=== PATIENT | female | born 1990 | race Caucasian/White ===

== ENCOUNTER 2018-06-09 11:18 | Emergency (ER) | payer BC ==
[2018-06-09 11:59] LABS: Absolute Lymphocytes (CBC) 2.4 K/uL (0.7-4.9); Absolute Monocytes 0.6 K/uL (0.1-1.3); Absolute Neutrophil 4.4 K/uL (1.8-8.0); Basophils % 0.5 % (0-1.3); Eosinophils % 3.4 % (0-4.4); Hematocrit 37.7 % (36.0-45.0); Lymphocytes % 30.8 % (15.3-44.8); MCH 30.3 pg (27.0-35.0); MCV 87.9 fL (80-100); MPV 9.9 fL (7.6-11.3); Monocytes % 7.8 % (3.3-12.3); RBC Red Blood Cell Count 4.29 M/uL (3.86-4.86)
[2018-06-09] MEDS ORDERED: NA CHLORIDE 0.9% 1,000 ML ONE (12:06)
[2018-06-09 12:13] LABS: BUN Blood Urea Nitrogen 5 mg/dL (7-18); Bicarbonate 26 mmol/L (21-32); Glucose Level 93 mg/dL (74-106); Potassium 3.8 mmol/L (3.5-5.1); Sodium Level 139 mmol/L (136-145)
[2018-06-09 13:52] LABS: Urine Blood NEGATIVE (NEG); Urine Glucose NEGATIVE (NEG); Urine Protein NEGATIVE (NEG); Urine Specific Gravity 1.015 (1.005-1.030)
--- NOTE | 2018-06-09 14:06 | RAD REPORT ---
EXAM DESCRIPTION: US - Transvaginal OB - 06/09/2018 1:09 pm CLINICAL HISTORY: with abdominal pain and vaginal bleeding COMPARISON: None. FINDINGS: The uterus is retroverted and measures 9 x 7 x 6 centimeters. A gestational sac is present within the endometrium. Within this is a yolk sac and pole with a crown-rump length 0.6 centimeters. Cardiac activity 131 beats per minute. A 3.5 centimeter heterogene ous fluid collection within the left aspect of the endometrium probably represents a hematoma. An IUD extends into the uterine fundus. It appears to abut or slightly enter the gestational sac. The ovaries are normal in size and echotexture. No significant free fluid is seen. IMPRESSION: Single live intrauterine with an estimated gestational age 6 weeks 3 days MARIANNE 01/30/2019 An IUD appears to either abut for slightly enter the gestational sac. This should be monitored on a s ubsequent examination 3.5 centimeter fluid collection probably representing a hematoma within the endometrium
--- NOTE | 2018-06-09 14:45 | EDPHYS ---
Physician Documentation [facility] Name: Brissa Barrett Age: 28 yrs Sex: Female : 1990 Arrival Date: 06/09/2018 Time: 11:21 Bed 8 Private MD: Casandra Munson ED Physician Maxim Gonzalez HPI: 06/09 11:58 This 28 yrs old Female presents to ER via Ambulatory with complaints of kb Vaginal Bleeding. 11:58 The patient presents with vaginal bleeding that is moderate, spotting, intermittent kb moderate flow, spotting in between. Onset: The symptoms/episode began/occurred 2 week(s) ago. Modifying factors: The symptoms are alleviated by nothing, the symptoms are aggravated by nothing. Associated signs and symptoms: Pertinent positives: cramping, vaginal bleeding, Pertinent negatives: constipation, diarrhea, dyspareunia, dysuria, fever, hematuria, nausea, urinary frequency, vaginal discharge, vomiting. Severity of symptoms: At their worst the symptoms were moderate, in the emergency department the symptoms are unchanged. The patient's method of control includes IUD. The patient has not experienced similar symptoms in the past. The patient has not recently seen a physician. Pt reports vaginal bleeding that started 2 weeks ago. States she has had lower abd/pelvic pain and low back pain as well. . 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 - Social history:: Smoking status: Patient/guardian denies using tobacco. - Ebola Screening: : No symptoms or risks identified at this time. ROS: 12:05 Constitutional: Negative for fever, chills, and weight loss, Cardiovascular: Negative kb for chest pain, palpitations, and edema, Respiratory: Negative for shortness of breath, cough, wheezing, and pleuritic chest pain, Back: Negative for injury and pain, MS/Extremity: Negative for injury and deformity, Skin: Negative for injury, rash, and discoloration, Neuro: Negative for headache, weakness, numbness, tingling, and seizure. 12:05 Abdomen/GI: Positive for abdominal pain, Negative for nausea, vomiting, and diarrhea. 12:05 : Positive for vaginal bleeding. Exam: 12:05 Constitutional: This is a well developed, well nourished patient who is awake, alert, kb and in no acute distress. Head/Face: Normocephalic, atraumatic. Chest/axilla: Normal chest wall appearance and motion. Nontender with no deformity. No lesions are appreciated. Cardiovascular: Regular rate and rhythm with a normal S1 and S2. No gallops, murmurs, or rubs. Normal PMI, no JVD. No pulse deficits. Respiratory: Lungs have equal breath sounds bilaterally, clear to auscultation and percussion. No rales, rhonchi or wheezes noted. No increased work of breathing, no retractions or nasal flaring. Back: No spinal tenderness. No costovertebral tenderness. Full range of motion. Skin: Warm, dry with normal turgor. Normal color with no rashes, no lesions, and no evidence of cellulitis. MS/ Extremity: Pulses equal, no cyanosis. Neurovascular intact. Full, normal range of motion. Neuro: Awake and alert, GCS 15, oriented to person, place, time, and situation. Cranial nerves II-XII grossly intact. Motor strength 5/5 in all extremities. Sensory grossly intact. Cerebellar exam normal. Normal gait. 12:05 Abdomen/GI: Inspection: abdomen appears normal, Bowel sounds: normal, in all quadrants, Palpation: soft, in all quadrants, moderate abdominal tenderness, in the right lower quadrant and left lower quadrant. Vital Signs: 11:30 BP 126 / 87; Pulse 112; Resp 16 S; Temp 99.0(TE); Pulse Ox 100% on R/A; Weight 74.84 kg aa5 (R); Height 6 ft. 0 in. (182.88 cm) (R); Pain 5/10; 12:30 BP 125 / 83; Pulse 98; Resp 16; Pulse Ox 100% on R/A; hb 13:59 BP 118 / 84; Pulse 84; Resp 17; Pulse Ox 100% on R/A; dh3 11:30 Body Mass Index 22.38 (74.84 kg, 182.88 cm) aa5 MDM: 11:31 Patient medically screened. kb 12:04 Data reviewed: vital signs, nurses notes. Data interpreted: Pulse oximetry: on room air kb is 100 %. Interpretation: normal. ED course: Pt educated on positive urine test and need for additional testing. Verbal understanding received. . 14:44 Counseling: I had a detailed discussion with the patient and/or guardian regarding: the kb historical points, exam findings, and any diagnostic results supporting the discharge/admit diagnosis, lab results, radiology results, the need for outpatient follow up, an OB/Gyne specialist, to return to the emergency department if symptoms worsen or persist or if there are any questions or concerns that arise at home. 14:44 Physician consultation: Roger Segura MD was contacted at 14:44, regarding consult, kb patient's condition, and will see patient in office, in 2-3 days. 06/09 11:42 Order name: Basic Metabolic Panel; Complete Time: 12:18 kb 06/09 11:42 Order name: CBC with Diff; Complete Time: 12:06 kb 06/09 11:47 Order name: Quantitative Hcg; Complete Time: 12:33 kb 06/09 11:47 Order name: Abo/rh Typing; Complete Time: 12:26 kb 06/09 11:50 Order name: Urine Dipstick--Ancillary (enter results); Complete Time: 14:00 bd 06/09 11:50 Order name: Urine --Ancillary (enter results); Complete Time: 14:00 bd 06/09 11:42 Order name: Urine Test (obtain specimen); Complete Time: 11:48 kb 06/09 11:42 Order name: IV Saline Lock; Complete Time: 11:58 kb 06/09 11:42 Order name: Labs collected and sent; Complete Time: 11:58 kb 06/09 11:42 Order name: NPO; Complete Time: 11:58 kb 06/09 11:42 Order name: Urine Dipstick-Ancillary (obtain specimen); Complete Time: 11:48 kb 06/09 11:47 Order name: US Transvaginal Ob; Complete Time: 14:09 kb Administered Medications: 12:07 Drug: NS 0.9% 1000 ml Route: IV; Rate: 1000 ml; Site: right antecubital; hb Disposition: 16:11 Co-signature as Attending Physician, Maxim Gonzalez MD I agree with the assessment and gretel plan of care. Disposition: 06/09/18 14:45 Discharged to Home. Impression: Less than 8 weeks gestation of . - Condition is Stable. - Discharge Instructions: First Trimester of , [id number]. - Medication Reconciliation Form, Thank You Letter, Antibiotic Education, Prescription Opioid Use form. - Follow up: Emergency Department; When: As needed; Reason: Worsening of condition. Follow up: Roger Segura MD; When: 1 - 2 days; Reason: Recheck today's complaints. Signatures: Dispatcher [employer] [facility] Natalie Linares, NEUROLOGY PHYSICIAN-C NEUROLOGY PHYSICIAN-Ckb Maxim Gonzalez MD MD cha Calderon, Audri, RN RN aa5 Heaven Guerra, RN RN Corrections: (The following items were deleted from the chart) 11:48 11:43 Transvaginal Study (Probe)+US.RAD.BRZ ordered. [facility] 15:08 14:45 06/09/2018 14:45 Discharged to Home. Impression: Less than 8 weeks gestation of hb . Condition is Stable. Forms are Medication Reconciliation Form, Thank You Letter, Antibiotic Education, Prescription Opioid Use. Follow up: Emergency Department; When: As needed; Reason: Worsening of condition. Follow up: Roger Segura; When: 1 - 2 days; Reason: Recheck today's complaints. kb
--- NOTE | 2018-06-09 14:45 | ER ---
Nurse's Notes [facility] Name: Brissa Barrett Age: 28 yrs Sex: Female : 1990 Arrival Date: 06/09/2018 Time: 11:21 Bed 8 Private MD: Casandra Munson Diagnosis: Less than 8 weeks gestation of Presentation: 06/09 11:27 Presenting complaint: Patient states: vaginal bleeding that began May 28, pt aa5 states "it's been spotting and then normal bleeding on and off since the ". Pt also reports lower back pain. Pt states "when I pee my bladder seems like it has trouble urinating". Transition of care: patient was not received from another setting of care. Onset of symptoms was May 2018. Risk Assessment: Do you want to hurt yourself or someone else? Patient reports no desire to harm self or others. Initial Sepsis Screen: Does the patient meet any 2 criteria? No. Patient's initial sepsis screen is negative. Does the patient have a suspected source of infection? No. Patient's initial sepsis screen is negative. Care prior to arrival: None. 11:27 Method Of Arrival: Ambulatory aa5 11:27 Acuity: JUAN R 3 aa5 Triage Assessment: 11:33 General: Appears in no apparent distress. well groomed, Behavior is calm, cooperative, tw2 appropriate for age. : Reports vaginal bleeding that is since for 10 days now. 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 - Social history:: Smoking status: Patient/guardian denies using tobacco. - Ebola Screening: : No symptoms or risks identified at this time. Screenin:33 Abuse screen: Denies threats or abuse. Nutritional screening: No deficits noted. tw2 Tuberculosis screening: No symptoms or risk factors identified. Fall Risk None identified. Assessment: 11:33 Reassessment: pt ambulating to the bathroom at this time, NAD. tw2 12:15 General: Appears in no apparent distress. Behavior is calm, cooperative. Pain: Denies hb pain. Neuro: Level of Consciousness is awake, alert, obeys commands, Oriented to person, place, time, situation. Cardiovascular: Heart tones S1 S2 present Capillary refill < 3 seconds Patient's skin is warm and dry. Respiratory: Airway is patent Trachea midline Respiratory effort is even, unlabored, Respiratory pattern is regular, symmetrical, Breath sounds are clear bilaterally. GI: No signs and/or symptoms were reported involving the gastrointestinal system. : Reports vaginal bleeding that is Denies pain. EENT: No signs and/or symptoms were reported regarding the EENT system. Derm: Skin is intact, is healthy with good turgor, Skin is pink, warm \\T\\ dry. Musculoskeletal: No signs and/or symptoms reported regarding the musculoskeletal system. 13:00 Reassessment: Patient appears in no apparent distress at this time. No changes from previously documented assessment. Patient and/or family updated on plan of care and expected duration. Pain level reassessed. Patient is alert, oriented x 3, equal unlabored respirations, skin warm/dry/pink. 13:52 Reassessment: BENCH ASSEMBLY INSPECTOR Natalie and Sally RN at bedside for pelvic exam. hb 14:45 Reassessment: Patient appears in no apparent distress at this time. Patient and/or hb family updated on plan of care and expected duration. Pain level reassessed. Patient is alert, oriented x 3, equal unlabored respirations, skin warm/dry/pink. Vital Signs: 11:30 BP 126 / 87; Pulse 112; Resp 16 S; Temp 99.0(TE); Pulse Ox 100% on R/A; Weight 74.84 kg aa5 (R); Height 6 ft. 0 in. (182.88 cm) (R); Pain 5/10; 12:30 BP 125 / 83; Pulse 98; Resp 16; Pulse Ox 100% on R/A; hb 13:59 BP 118 / 84; Pulse 84; Resp 17; Pulse Ox 100% on R/A; dh3 11:30 Body Mass Index 22.38 (74.84 kg, 182.88 cm) aa5 ED Course: 11:21 Patient arrived in ED. mr 11:22 Casandra Munson MD is Private Physician. mr 11:29 Triage completed. aa5 11:29 Arm band placed on. aa5 11:30 Natalie Linares, JAMARI is [facility]. kb 11:30 Maxim Gonzalez MD is Attending Physician. kb 11:32 Slaly Levy, RN is Primary Nurse. tw2 11:47 Urine collected: clean catch specimen, clear. dh3 11:50 Inserted saline lock: 20 gauge in right antecubital area, using aseptic technique. hb Blood collected. 11:55 Radiology exam delayed due to lab results not completed at this time. (HCG). aa4 11:57 ABO Rh drawn by me and sent to lab. dh3 12:15 Patient has correct armband on for positive identification. Placed in gown. Bed in low hb position. Call light in reach. Side rails up X 1. 12:39 Note: us done portable in er. aa4 13:09 US Transvaginal Ob In Process Unspecified. EDMS 14:00 Assist provider with pelvic exam: Set up pelvic tray. Performed by Natalie ji2 JAMARI Patient tolerated well. 14:45 Roger Segura MD is Referral Physician. kb 15:07 IV discontinued, intact, bleeding controlled, No redness/swelling at site. Pressure hb dressing applied. Administered Medications: 12:07 Drug: NS 0.9% 1000 ml Route: IV; Rate: 1000 ml; Site: right antecubital; hb Outcome: 14:45 Discharge ordered by . kb 15:07 Discharged to home ambulatory, with significant other. hb 15:07 Condition: stable 15:07 Discharge instructions given to patient, family, Instructed on discharge instructions, follow up and referral plans. medication usage, Demonstrated understanding of instructions, follow-up care, medications. 15:08 Patient left the ED. hb Signatures: Dispatcher [employer] [facility] Natalie Linares FNP-C SCROLL ASSEMBLER-Arun Yolande Preston Amanda aa4 Delma Borja, RN RN aa5 Heaven Guerra, CHRISSY RN Sally Levy, CHRISSY RN 2 Madalyn Stuart 3
== END 2018-06-09 15:08 | disposition home or self-care (01) ==
LOC: ER 11:18
DX: O20.9 Hemorrhage in early pregnancy, unspecified (principal); Z3A.08 8 weeks gestation of pregnancy
CPT/HCPCS: 36415; 76817; 80048; 81003; 81025; 84702; 85025; 86900; 86901; 99284; J7030

== ENCOUNTER 2018-06-14 15:58 | Emergency (ER) | payer BC ==
[2018-06-14 16:44] LABS: Absolute Lymphocytes (CBC) 2.2 K/uL (0.7-4.9); Absolute Monocytes 0.7 K/uL (0.1-1.3); Basophils % 0.5 % (0-1.3); Eosinophils % 4.3 % (0-4.4); Hematocrit 37.6 % (36.0-45.0); Lymphocytes % 23.7 % (15.3-44.8); MCH 30.7 pg (27.0-35.0); MCV 88.7 fL (80-100); Monocytes % 7.7 % (3.3-12.3); RBC Red Blood Cell Count 4.24 M/uL (3.86-4.86)
--- NOTE | 2018-06-14 18:53 | RAD REPORT ---
EXAM DESCRIPTION: US - Transvaginal OB - 06/14/2018 6:15 pm CLINICAL HISTORY: , vaginal bleeding, history of IUD removed 4 days earlier COMPARISON: Ultrasound June 09 TECHNIQUE: Endovaginal sonography performed. FINDINGS: A single intrauterine gestation is identifiable. Camanche-rump length corresponds to a 7 week 0 day age. Calculated MARIANNE is 01/31/2019. No disruption or deformity of the gestational sac. Heart ra te ranges 130-141 BPM. The 3.5 centimeter heterogeneous collection left-side fundal endometrial cavity abutting the gestatio nal sac has not changed. This is most likely hematoma. Right ovary contains a 17 millimeter cyst. No suspicious right ovarian or right adnexal finding. Left ovary was not visualized. Attempts to better visualize left adnexum were precluded due to patien t pain. No measurable free fluid or blood in the cul-de-sac. IMPRESSION: Single 7 week 0 day IUP. Calculated MARIANNE is 01/31/2019. Heart rate is 130-141 BPM. Approximately 3.5 centimeter hematoma in the left-side endometrial cavity abutting the gestational sa c. Size has not changed since June 09. A 17 millimeter cyst is present in the right ovary. Left adnexa assessment was limited due to patient pain.
--- NOTE | 2018-06-14 19:02 | EDPHYS ---
Physician Documentation [facility] Name: Brissa Barrett Age: 28 yrs Sex: Female : 1990 Arrival Date: 06/14/2018 Time: 16:00 Bed 30 Private MD: Casandra Munson ED Physician Johnny Childers HPI: 06/14 18:53 This 28 yrs old Female presents to ER via Ambulatory with complaints of gs Vaginal Bleeding, + Preg <12wks. 18:53 The patient presents to the emergency department with vaginal bleeding, that is gs moderate, with clots. Associated signs and symptoms: Pertinent negatives: chest pain, dysuria, ruptured membranes, vomiting. The patient has experienced a previous episode. The patient has been recently seen by a physician: Dr. guillen, took out iud. 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 - Social history:: Smoking status: Patient/guardian denies using tobacco. - Ebola Screening: : Patient negative for fever greater than or equal to 101.5 degrees Fahrenheit, and additional compatible Ebola Virus Disease symptoms Patient denies exposure to infectious person Patient denies travel to an Ebola-affected area in the 21 days before illness onset No symptoms or risks identified at this time. ROS: 18:53 All other systems are negative. gs Exam: 18:53 Head/Face: Normocephalic, atraumatic. Eyes: Pupils equal round and reactive to light, gs extra-ocular motions intact. Lids and lashes normal. Conjunctiva and sclera are non-icteric and not injected. Cornea within normal limits. Periorbital areas with no swelling, redness, or edema. ENT: Nares patent. No nasal discharge, no septal abnormalities noted. Tympanic membranes are normal and external auditory canals are clear. Oropharynx with no redness, swelling, or masses, exudates, or evidence of obstruction, uvula midline. Mucous membranes moist. Neck: Trachea midline, no thyromegaly or masses palpated, and no cervical lymphadenopathy. Supple, full range of motion without nuchal rigidity, or vertebral point tenderness. No Meningismus. Chest/axilla: Normal chest wall appearance and motion. Nontender with no deformity. No lesions are appreciated. Cardiovascular: Regular rate and rhythm with a normal S1 and S2. No gallops, murmurs, or rubs. Normal PMI, no JVD. No pulse deficits. Respiratory: Lungs have equal breath sounds bilaterally, clear to auscultation and percussion. No rales, rhonchi or wheezes noted. No increased work of breathing, no retractions or nasal flaring. Abdomen/GI: Soft, non-tender, with normal bowel sounds. No distension or tympany. No guarding or rebound. No evidence of tenderness throughout. Back: No spinal tenderness. No costovertebral tenderness. Full range of motion. Skin: Warm, dry with normal turgor. Normal color with no rashes, no lesions, and no evidence of cellulitis. MS/ Extremity: Pulses equal, no cyanosis. Neurovascular intact. Full, normal range of motion. Neuro: Awake and alert, GCS 15, oriented to person, place, time, and situation. Cranial nerves II-XII grossly intact. Motor strength 5/5 in all extremities. Sensory grossly intact. Cerebellar exam normal. Normal gait. 18:53 Constitutional: The patient appears alert, awake. 18:53 : Pelvic Exam: External exam: is normal, Speculum exam: mild bleeding, os that is closed, bimanual exam reveals normal findings. Vital Signs: 16:03 BP 135 / 72; Pulse 89; Resp 17; Temp 98.2; Pulse Ox 100% on R/A; Weight 77.11 kg; aj Height 6 ft. 0 in. (182.88 cm); 17:51 BP 113 / 56; Pulse 71; Resp 18; Temp 98.1(O); Pulse Ox 100% on R/A; mg2 18:55 BP 118 / 59; Pulse 78; Resp 18; Pulse Ox 100% on R/A; mg2 16:03 Body Mass Index 23.06 (77.11 kg, 182.88 cm) aj MDM: 16:21 Patient medically screened. gs 18:53 Differential diagnosis: threatened Ab, inevitable Ab, complete Ab. Data reviewed: vital gs signs, nurses notes. Counseling: I had a detailed discussion with the patient and/or guardian regarding: the historical points, exam findings, and any diagnostic results supporting the discharge/admit diagnosis, lab results, radiology results, the need for outpatient follow up. Response to treatment: the patient's symptoms have markedly improved after treatment, and as a result, I will discharge patient. 06/14 16:23 Order name: CBC with Diff; Complete Time: 17:36 06/14 16:23 Order name: HCG-Quantitative; Complete Time: 17:36 06/14 16:23 Order name: Transvaginal OB US; Complete Time: 19:01 06/14 18:04 Order name: Urine Dipstick--Ancillary (enter results) eb 06/14 18:04 Order name: Urine --Ancillary (enter results) eb Administered Medications: No medications were administered Point of Care Testing: Urine : 19:16 not done mg2 Disposition: 06/14/18 19:01 Discharged to Home. Impression: Hemorrhage in early . - Condition is Stable. - Discharge Instructions: Vaginal Bleeding During , First Trimester, [id number]. - Medication Reconciliation Form, Thank You Letter, Antibiotic Education, Prescription Opioid Use form. - Follow up: Roger Guillen MD; When: 2 - 3 days; Reason: Re-evaluation by your physician. Signatures: Dispatcher [employer] Meghna Coto RN RN Johnny Matthew MD MD Jacob Robles RN RN mg2 Corrections: (The following items were deleted from the chart) 19:16 19:01 06/14/2018 19:01 Discharged to Home. Impression: Hemorrhage in early . mg2 Condition is Stable. Forms are Medication Reconciliation Form, Thank You Letter, Antibiotic Education, Prescription Opioid Use. Follow up: Roger Guillen; When: 2 - 3 days; Reason: Re-evaluation by your physician. gs
--- NOTE | 2018-06-14 19:02 | ER ---
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 Patient had positive with IUD on Saturday, IUD removed Saturday. Transition of care: patient was not received from another setting of care. Onset of symptoms was June 14, 2018. Risk Assessment: Do you want to hurt yourself or someone else? Patient reports no desire to harm self or others. Initial Sepsis Screen: Does the patient meet any 2 criteria? No. Patient's initial sepsis screen is negative. Does the patient have a suspected source of infection? No. Patient's initial sepsis screen is negative. Care prior to arrival: None. 16:02 Method Of Arrival: Ambulatory aj 16:02 Acuity: JUAN R 3 aj Triage Assessment: 16:03 General: Appears in no apparent distress. uncomfortable, Behavior is calm, cooperative, aj appropriate for age. Pain: Complains of pain in pelvis. Neuro: Level of Consciousness is awake, alert, obeys commands, Oriented to person, place, time, situation, Appropriate for age. Respiratory: Airway is patent Respiratory effort is even, unlabored, Respiratory pattern is regular, symmetrical. : Reports cramping, vaginal bleeding that is. Derm: Skin is intact, is healthy with good turgor, Skin is pink, warm \T\ dry. normal. 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 - Social history:: Smoking status: Patient/guardian denies using tobacco. - Ebola Screening: : Patient negative for fever greater than or equal to 101.5 degrees Fahrenheit, and additional compatible Ebola Virus Disease symptoms Patient denies exposure to infectious person Patient denies travel to an Ebola-affected area in the 21 days before illness onset No symptoms or risks identified at this time. Screenin:30 Abuse screen: Denies threats or abuse. Denies injuries from another. Nutritional mg2 screening: No deficits noted. Tuberculosis screening: No symptoms or risk factors identified. Fall Risk IV access (20 points). Assessment: 16:28 Obstetrical Assessment: General assessment: awake and alert, skin warm and dry. mg2 General: Appears in no apparent distress. comfortable, Behavior is calm, cooperative. Pain: Complains of pain in pelvis Pain does not radiate. Quality of pain is described as aching, Pain began gradually, 1 hour ago. Is intermittent. Neuro: Level of Consciousness is awake, alert, obeys commands, Oriented to person, place, time, situation. Cardiovascular: Capillary refill < 3 seconds Patient's skin is warm and dry. Respiratory: Airway is patent Respiratory effort is even, unlabored, Respiratory pattern is regular, symmetrical. GI: No signs and/or symptoms were reported involving the gastrointestinal system. : No signs and/or symptoms were reported regarding the genitourinary system. EENT: No signs and/or symptoms were reported regarding the EENT system. Derm: Skin is intact, Skin is pink, warm \T\ dry. normal. Musculoskeletal: No signs and/or symptoms reported regarding the musculoskeletal system. 18:56 Reassessment: Patient appears in no apparent distress at this time. Patient and/or mg2 family updated on plan of care and expected duration. Pain level reassessed. Patient is alert, oriented x 3, equal unlabored respirations, skin warm/dry/pink. Vital Signs: 16:03 BP 135 / 72; Pulse 89; Resp 17; Temp 98.2; Pulse Ox 100% on R/A; Weight 77.11 kg; aj Height 6 ft. 0 in. (182.88 cm); 17:51 BP 113 / 56; Pulse 71; Resp 18; Temp 98.1(O); Pulse Ox 100% on R/A; mg2 18:55 BP 118 / 59; Pulse 78; Resp 18; Pulse Ox 100% on R/A; mg2 16:03 Body Mass Index 23.06 (77.11 kg, 182.88 cm) aj Vitals: 19:15 Heart Tones not done. mg2 ED Course: 16:00 Patient arrived in ED. mr 16:01 Casandra Munson MD is Private Physician. mr 16:03 Triage completed. aj 16:03 Arm band placed on left wrist. Patient placed in an exam room. aj 16:13 Johnny Ma MD is Attending Physician. 16:15 Jacob Robles, RN is Primary Nurse. mg2 16:30 Patient has correct armband on for positive identification. Bed in low position. Pulse mg2 ox on. NIBP on. 16:30 Inserted saline lock: 20 gauge in right antecubital area, using aseptic technique. mg2 Blood collected. 17:17 Ultrasound completed. Patient tolerated well. Notified ED Physician ma. sg3 18:56 Roger Segura MD is Referral Physician. gs 19:15 Assist provider with pelvic exam: Set up pelvic tray. Performed by Johnny Ma MD mg2 Patient tolerated. IV discontinued, intact, bleeding controlled, No redness/swelling at site. Pressure dressing applied. Administered Medications: No medications were administered Point of Care Testing: Urine : 19:16 not done mg2 Outcome: 19:01 Discharge ordered by MD. 19:15 Discharged to home ambulatory, with family. mg2 19:15 Condition: stable 19:15 Discharge instructions given to patient, family, Instructed on discharge instructions, follow up and referral plans. Demonstrated understanding of instructions, follow-up care. 19:16 Patient left the ED. mg2 Signatures: Dispatcher [employer] EDMS Meghna Olguin, RN RN josesito PrestonRadha mr Johnny Ma MD MD Daniella Carrillo sg3 Jacob Robles, RN RN mg2 Corrections: (The following items were deleted from the chart) 17:08 16:34 Radiology exam delayed due to test not completed at this time. sg3 sg3 17:56 17:51 BP 113 / 56; Pulse 71bpm; Resp 18bpm; Pulse Ox 100% RA; mg2 mg2 18:17 18:16 In radiology for Transvaginal Ob+US.ALCON.JOELLE. ED sg3
[2018-06-14 19:36] LABS: Urine Blood 3+ (NEG); Urine Glucose NEGATIVE (NEG); Urine Protein 1+ (NEG)
== END 2018-06-14 19:16 | disposition home or self-care (01) ==
LOC: ER 15:58
DX: O20.9 Hemorrhage in early pregnancy, unspecified (principal)
CPT/HCPCS: 36415; 76817; 81003; 81025; 84702; 85025; 99284

== ENCOUNTER 2022-01-27 14:17 | Emergency (ER) | payer BC ==
--- OUTSIDE RECORDS SUMMARY | 2022-01-27 14:19 | XMS REPORT | Continuity of Care Document ---
:1990 Author Organization [facility] t Address [address] [place] [address] Dr. Chavira [address] [place] [address] Care Team Providers Name Role Phone CASE BRYAN Attending Clinician Unavailable VIRA Attending Clinician Unavailable FISH Attending Clinician Unavailable Doctor Unassigned, Name Attending Clinician Unavailable Payers Payer Name Policy Type Policy Number Effective Date Expiration Date S ource OUT OF STATE [id number] 2020 00:00:00 BCBS - PPO - BCBS BCBS OF [place] [id number] 2019 00:00:00 Problems This patient has no known problems. Allergies, Adverse Reactions, Alerts Allergy Allergy Status Severity Reaction(s) Onset Inactive Treating Comm ents Source Name Type Date Date Clinician TREE Food Active Swelling 2019-0 Univers NUTS 2-18 ity of 00:00: [address] PINEAPPL DRUG Active Swelling 2019-0 Univer s E FLAVOR INGREDI 2-18 ity of 00:00: [address] NIFEDIPI DRUG Active Swelling 2018-0 Univer s NE INGREDI 2-03 ity of 00:00: [address] LATEX DRUG Active Hives 2017- Univers INGREDI 0-05 ity of 00:00: [address] NO KNOWN Drug Active Univers ALLERGIE Class ity of S [facility] Social History Social Habit Start Date Stop Date Quantity Comments Source Sex Assigned At Uni versity [facility] Smoking Status Start Date Stop Date Source Unknown if ever smoked Universit y [facility] Medications This patient has no known medications. Procedures Procedure Date / Time Performed Performing Clinician Sourc e ASSIGNMENT OF BENEFITS 2020-09-20 21:25:28 Doctor Unassigned, No [facility] Encounters Start End Encounter Admission Attending Care Care Encounter Source Date/Time Date/Time Type Type Clinicians Facility Department ID 2021-08-15 2021-08-15 Outpatient GENARO BRYAN [facility] [id number] [facility] 12:40:09 13:07:39 BRADLEY Sommers e of Medicin e 2021-03-27 2021-03-27 Outpatient GENARO CONSTANTINO [facility] [id number] [facility] 15:21:14 15:45:06 CHADWICK Sommers e of Medicin e 2020-11-21 2020-11-21 Outpatient R ALBERT TOLLIVER [facility] [id number] Univers 09:00:00 09:00:00 [id number] ity [facility] 2020-11-21 2020-11-21 Outpatient R ALBERT TOLLIVER [facility] [id number] Univers 09:00:00 09:00:00 ity [facility] 2020-10-17 2020-10-17 Outpatient R ALBERT TOLLIVER [facility] [id number] Univers 00:00:00 00:00:00 [id number] ity [facility] 2020-10-06 2020-10-06 Outpatient R ALBERT TOLLIVER [facility] [id number] Univers 17:30:00 17:30:00 [id number] ity [facility] 2020-10-04 2020-10-04 Outpatient R [facility] [id number] Univers 09:15:00 09:15:00 [id number] ity [facility] 2020-10-04 2020-10-04 Outpatient R [facility] [id number] Univers 09:15:00 09:15:00 ity [facility] 2020-09-20 2020-09-20 Outpatient R ALBERT TOLLIVER [facility] [id number] Univers 15:30:00 15:30:00 ity [facility] 2020-09-20 2020-09-20 Orders Doctor PHILIP [id number] Univers 00:00:00 00:00:00 Only Unassigned, EMMY [id number] ity of [place] [facility] [id number] Marcus as [phone] [place] [id number] Branch Results This patient has no known results.
[2022-01-27] MEDS ORDERED: ONDANSETRON 4 MG/2 ML VIAL ONE (15:31)
[2022-01-27] MEDS ORDERED: MORPHINE 4 MG/ML SYR ONE (15:31)
[2022-01-27 15:34] LABS: Urine Blood Trace-intact (Negative); Urine Glucose Negative (Negative); Urine Protein Negative (Negative)
[2022-01-27 15:54] LABS: Absolute Lymphocytes (CBC) 2.8 K/uL (0.7-4.9); Hematocrit 37.7 % (36.0-45.0); RBC Red Blood Cell Count 4.39 M/uL (3.86-4.86)
[2022-01-27 16:01] LABS: Albumin 3.8 g/dL (3.4-5.0); Bilirubin Total 0.2 mg/dL (0.2-1.0); Potassium 3.5 mmol/L (3.5-5.1); Protein, Total 7.4 g/dL (6.4-8.2)
--- NOTE | 2022-01-27 16:11 | RAD REPORT ---
EXAM DESCRIPTION: US - Abdomen Exam Limited - 01/27/2022 3:57 pm CLINICAL HISTORY: ABD PAIN COMPARISON: Abdomen Exam Complete dated 06/05/2016 FINDINGS: The gallbladder demonstrates no gallstones. No pericholecystic fluid or gallbladder wall t hickening. The common bile duct is normal measuring 3 mm. The gallbladder is contracted. The liver demonstrates no findings of intrahepatic biliary dilatation. IMPRESSION: Contracted gallbladder which is otherwise unremarkable. Negative for cholelithiasis or b iliary ductal dilatation.
--- NOTE | 2022-01-27 17:16 | ER ---
Nurse's Notes [facility] Name: Brissa Barrett Age: 32 yrs Sex: Female : 1990 Arrival Date: 01/27/2022 Time: 14:18 Bed 20 Private MD: Diagnosis: Upper abdominal pain, unspecified Presentation: 01/27 14:43 Chief complaint: Patient states: pain under right rib cage radiates under shoulder, iw thought she pulled a muscle . started 3 days ago , pain is constant , ate two hours ago and pain feels worse. Coronavirus screen: At this time, the client does not indicate any symptoms associated with coronavirus-19. Ebola Screen: Patient negative for fever greater than or equal to 101.5 degrees Fahrenheit, and additional compatible Ebola Virus Disease symptoms Patient denies exposure to infectious person. Patient denies travel to an Ebola-affected area in the 21 days before illness onset. No symptoms or risks identified at this time. Initial Sepsis Screen: Does the patient meet any 2 criteria? No. Patient's initial sepsis screen is negative. Does the patient have a suspected source of infection? No. Patient's initial sepsis screen is negative. Risk Assessment: Do you want to hurt yourself or someone else? Patient reports no desire to harm self or others. Onset of symptoms was January 24, 2022. 14:43 Method Of Arrival: Ambulatory iw 14:43 Acuity: JUAN R 3 Triage Assessment: 14:45 General: Appears in no apparent distress. uncomfortable, Behavior is cooperative, bp appropriate for age, anxious. Pain: Complains of pain in right lateral anterior chest. EENT: No deficits noted. Neuro: No deficits noted. Cardiovascular: No deficits noted. Respiratory: No deficits noted. GI: No signs and/or symptoms were reported involving the gastrointestinal system. : No signs and/or symptoms were reported regarding the genitourinary system. Derm: No deficits noted. Musculoskeletal: No deficits noted. 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 - Social history:: Smoking status: Patient denies any tobacco usage or history of. Screenin:00 Abuse screen: Denies threats or abuse. Denies injuries from another. Nutritional bp screening: No deficits noted. Tuberculosis screening: No symptoms or risk factors identified. Fall Risk None identified. Assessment: 14:45 General: SEE TRIAGE NOTE. bp 17:00 Reassessment: PT D/C HOME AMBULATORY WITH FAMILY. bp Vital Signs: 14:43 BP 142 / 75; Pulse 84; Resp 16; Temp 98.4; Pulse Ox 100% on R/A; Weight 88.45 kg; iw Height 6 ft. (182.88 cm); Pain 8/10; 17:00 BP 123 / 79; Pulse 73; Resp 16; Pulse Ox 100% ; bp 14:43 Body Mass Index 26.45 (88.45 kg, 182.88 cm) iw ED Course: 14:18 Patient arrived in ED. as 14:45 Triage completed. iw 14:46 Arm band placed on. iw 15:09 Gaby Reyes PA is PHCP. en 15:09 Seda Brown MD is Attending Physician. en 15:21 Jc Rdz, CHRISSY is Primary Nurse. bp 15:42 Abdomen Limited US Sent. bp 15:58 Abdomen Limited US In Process Unspecified. EDMS 17:00 Patient has correct armband on for positive identification. Bed in low position. Call bp light in reach. Side rails up X2. 17:00 No provider procedures requiring assistance completed. IV discontinued, intact, bp bleeding controlled, No redness/swelling at site. Pressure dressing applied. 17:15 Uri Driscoll MD is Referral Physician. en Administered Medications: 15:40 Not Given (Patient Refused): Zofran (Ondansetron) 4 mg IVP once; over 2 minutes bp 15:40 Not Given (Patient Refused): morphine 4 mg IVP once bp Medication: 17:00 VIS not applicable for this client. bp Outcome: 17:00 Discharged to home ambulatory, with family. bp 17:00 Condition: stable 17:00 Discharge instructions given to patient, Instructed on discharge instructions, follow up and referral plans. medication usage, Demonstrated understanding of instructions, follow-up care, medications, Prescriptions given X 3. 17:15 Discharge ordered by . en 17:29 Patient left the ED. bp Signatures: Dispatcher [employer] EDMS Barbara Christiansen Irene, RN RN Jc Ravi, CHRISSY RN Gaby Hyatt PA PA en
--- NOTE | 2022-01-27 17:16 | EDPHYS ---
Physician Documentation [facility] Name: Brissa Barrett Age: 32 yrs Sex: Female : 1990 Arrival Date: 01/27/2022 Time: 14:18 Bed 20 Private MD: ED Physician Seda Brown HPI: 01/27 16:26 This 32 yrs old Female presents to ER via Ambulatory with complaints of pain under en ribcage. 16:26 Onset: The symptoms/episode began/occurred gradually, just prior to arrival, today. en Associated signs and symptoms: Pertinent positives: nausea, Pertinent negatives: chest pain, fever, vomiting. Modifying factors: The patient symptoms are alleviated by nothing, the patient symptoms are aggravated by eating food. 32 yo F presents to ED with several hours of RUQ pain radiating to Right flank after eating Georgian food for lunch. Describes it as intermittent, colicky, worse with food and associated with nausea. No GERD, bloating, diarrhea, melena, hematochezia, CP, SOB, dysuria, hematuria. 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 - Social history:: Smoking status: Patient denies any tobacco usage or history of. ROS: 16:26 Constitutional: Negative for fever, chills, and weight loss. en 16:26 Cardiovascular: Negative for chest pain, orthopnea, palpitations. 16:26 Respiratory: Negative for cough, shortness of breath. 16:26 Abdomen/GI: Positive for abdominal pain, nausea, Negative for vomiting, diarrhea, constipation, hematemesis, black/tarry stool, rectal pain. 16:26 Back: Negative for 16:26 : Negative for hematuria, flank pain, burning with urination. 16:26 Skin: Negative for rash. 16:26 All other systems are negative. Exam: 16:31 Constitutional: This is a well developed, well nourished patient who is awake, alert, en and in no acute distress. 16:31 Constitutional: The patient appears uncomfortable 2/2 pain, but in NAD 16:31 Eyes: Conjunctiva: normal, anicteric sclera. 16:31 Cardiovascular: Rate: normal, Rhythm: regular, Pulses: no pulse deficits are appreciated, Heart sounds: murmur, systolic, rub, not appreciated, gallop, not appreciated. 16:31 Respiratory: the patient does not display signs of respiratory distress, Respirations: normal, Breath sounds: are clear throughout. 16:31 Abdomen/GI: Inspection: abdomen appears normal, Bowel sounds: normal, active, Palpation: RUQ TTP with + murphys sign. 16:31 Back: CVA tenderness, is absent. 16:31 Musculoskeletal/extremity: Extremities: all appear grossly normal, with no appreciated pain with palpation. 16:31 Skin: Exam negative for 16:31 Neuro: Orientation: is normal, appropriate for stated age, to person, place \T\ time. Vital Signs: 14:43 BP 142 / 75; Pulse 84; Resp 16; Temp 98.4; Pulse Ox 100% on R/A; Weight 88.45 kg; iw Height 6 ft. (182.88 cm); Pain 8/10; 17:00 BP 123 / 79; Pulse 73; Resp 16; Pulse Ox 100% ; bp 14:43 Body Mass Index 26.45 (88.45 kg, 182.88 cm) iw MDM: 15:11 Patient medically screened. en 16:31 Differential diagnosis: biliary colic, cholecystitis, pancreatitis, GERD, PUD, colitis. en Data reviewed: vital signs, nurses notes, lab test result(s), radiologic studies. 17:13 ED course: Pt feels better. Pain resolved. Declined pain medication. No N/V. Tolerating en po and abd nontender to deep, vigorous palpation. Reviewed imaging and labs. Discussed gastritis vs PUD vs biliary dyskinesia. Pt ate a lot of spicey food at lunch. Encouraged bland diet. Will start on pepcid, zofran, and bentyl with GI f.u. ER return warnings reviewed. . 17:16 Data reviewed: and as a result, I will order radiologic studie(s), ultrasound, en prescribe pain medication. 01/27 15:11 Order name: CBC with Diff; Complete Time: 17:07 en 01/27 15:11 Order name: CMP; Complete Time: 17: en 01/27 15:11 Order name: Lipase; Complete Time: 17:07 en 01/27 15:11 Order name: Test, Serum; Complete Time: 17:07 en 01/27 15:34 Order name: Urine Dipstick-Ancillary; Complete Time: 17:07 EDAK 01/27 15:43 Order name: Urine --Ancillary (enter results) eb 01/27 15:11 Order name: Abdomen Limited US; Complete Time: 17:07 en 01/27 15:11 Order name: IV Saline Lock; Complete Time: 15:40 en 01/27 15:11 Order name: Labs collected and sent; Complete Time: 15:40 en 01/27 15:11 Order name: Urine Dipstick-Ancillary (obtain specimen); Complete Time: 15:40 en 01/27 15:11 Order name: Urine Test (obtain specimen); Complete Time: 15:40 en Administered Medications: 15:40 Not Given (Patient Refused): Zofran (Ondansetron) 4 mg IVP once; over 2 minutes bp 15:40 Not Given (Patient Refused): morphine 4 mg IVP once bp Disposition: 18:01 Co-signature as Attending Physician, Seda Brown MD. ma2 Disposition Summary: 01/27/22 17:15 Discharge Ordered Location: Home en Condition: Stable en Diagnosis - Upper abdominal pain, unspecified en Followup: en - With: Uri Driscoll MD - When: As needed - Reason: Discharge Instructions: - Discharge Summary Sheet en - Abdominal Pain, Adult en Forms: - Medication Reconciliation Form en - Thank You Letter en - Antibiotic Education en - Prescription Opioid Use en Prescriptions: - Zofran 4 mg Oral Tablet - take 1 tablet by ORAL route every 12 hours As needed; 20 tablet; Refills: 0, en Product Selection Permitted - Pepcid 20 mg Oral Tablet - take 1 tablet by ORAL route once daily for 10 days; 10 tablet; Refills: 0, en Product Selection Permitted - dicyclomine 10 mg Oral Capsule - take 1 capsule by ORAL route 4 times per day; 20 capsule; Refills: 0, Product en Selection Permitted Signatures: Dispatcher [employer] Ambika Ralph RN RN iw Alzahri, Mohammad, MD MD ma2 Gaby Reyes PA PA en Peltier, Brian RN bp
[2022-01-27 20:48] VITALS: TEMP 98.4; O2SAT 100
[2022-01-27 20:49] VITALS: BP 123/79
== END 2022-01-27 17:29 | disposition home or self-care (01) ==
LOC: ER 14:17
DX: R10.11 Right upper quadrant pain (principal); R11.0 Nausea
CPT/HCPCS: 36415; 76705; 80053; 81003; 81025; 83690; 84703; 85025; 99283; J2405

== ENCOUNTER 2022-09-22 14:43 | Emergency (ER) | payer BC ==
--- OUTSIDE RECORDS SUMMARY | 2022-09-22 14:45 | XMS REPORT | Continuity of Care Document ---
:1990 Author Organization [facility] t Address [address] [place] [address] Dr. Chavira [address] [place] [address] Care Team Providers Name Role Phone BRADLEY BRYAN Attending Clinician Unavailable CHADWICK CONSTANTINO Attending Clinician Unavailable ALBERT TOLLIVER Attending Clinician Unavailable Doctor Unassigned, [place] Attending Clinician Unavailable Payers Payer Name Policy Type Policy Number Effective Date Expiration Date S ource OUT OF STATE [id number] 2020 00:00:00 BCBS - PPO - BCBS BCBS OF [place] [id number] 2019 00:00:00 Problems This patient has no known problems. Allergies, Adverse Reactions, Alerts Allergy Allergy Status Severity Reaction(s) Onset Inactive Treating Comm ents Source Name Type Date Date Clinician TREE Food Active Swelling 2019-0 Univers NUTS 2-18 ity of 00:00: [address] PINEAPPL DRUG Active Swelling 2019-0 Univer s E FLAVOR INGREDI 2-18 ity of 00:00: [address] NIFEDIPI DRUG Active Swelling 2019-0 Univer s NE INGREDI 2-03 ity of 00:00: [address] LATEX DRUG Active Hives 2018- Univers INGREDI 0-05 ity of 00:00: [address] NO KNOWN Drug Active Univers ALLERGIE Class ity of S [facility] Social History Social Habit Start Date Stop Date Quantity Comments Source Sex Assigned At Uni versity [facility] Smoking Status Start Date Stop Date Source Unknown if ever smoked Universit y [facility] Medications This patient has no known medications. Procedures Procedure Date / Time Performed Performing Clinician Sour e ASSIGNMENT OF BENEFITS 2020-09-20 21:25:28 Doctor Unassigned, No [facility] Encounters Start End Encounter Admission Attending Care Care Encounter Source Date/Time Date/Time Type Type Clinicians Facility Department ID 2021-08-15 2021-08-15 Outpatient GENARO BRYAN [facility] [id number] [facility] 12:40:09 13:07:39 BRADLEY Sommers e of Medicin e 2021-03-27 2021-03-27 Outpatient GENARO CONSTANTINO [facility] [id number] [facility] 15:21:14 15:45:06 CHADWICK Sommers e of Medicin e 2020-11-21 2020-11-21 Outpatient R ALBERT TOLLIVER [facility] [id number] Univers 09:00:00 09:00:00 [id number] ity [facility] 2020-11-21 2020-11-21 Outpatient R ALBERT TOLLIVER [facility] [id number] Univers 09:00:00 09:00:00 ity [facility] 2020-10-17 2020-10-17 Outpatient R ALBERT TOLLIVER [facility] [id number] Univers 00:00:00 00:00:00 [id number] ity [facility] 2020-10-06 2020-10-06 Outpatient R ALBERT TOLLIVER [facility] [id number] Univers 17:30:00 17:30:00 [id number] ity [facility] 2020-10-04 2020-10-04 Outpatient R [facility] [id number] Univers 09:15:00 09:15:00 [id number] ity [facility] 2020-10-04 2020-10-04 Outpatient R [facility] [id number] Univers 09:15:00 09:15:00 ity [facility] 2020-09-20 2020-09-20 Outpatient R ALBERT TOLLIVER [facility] [id number] Univers 15:30:00 15:30:00 ity [facility] 2020-09-20 2020-09-20 Orders Doctor PHILIP [id number] Univers 00:00:00 00:00:00 Only Unassigned, EMMY [id number] ity of [facility] [id number] Marcus as [id number] [place] [id number] Branch Results This patient has no known results.
[2022-09-22] MEDS ORDERED: KETOROLAC 30 MG/ML INJ ONE (15:14)
[2022-09-22] MEDS ORDERED: ONDANSETRON 4 MG/2 ML VIAL ONE (15:14)
[2022-09-22] MEDS ORDERED: NA CHLORIDE 0.9% 1,000 ML ONE (15:14)
--- NOTE | 2022-09-22 15:20 | RAD REPORT ---
EXAM DESCRIPTION: US - Abdomen Exam Limited - 09/22/2022 3:09 pm CLINICAL HISTORY: ABD PAIN COMPARISON: Abdomen Exam Limited dated 01/27/2022 FINDINGS: The gallbladder demonstrates no gallstones. The gallbladder is contracted which simulates gallbladder wall thickening. The common bile duct is normal measuring 5 mm. The liver demonstrates no findings of intrahepatic biliary dilatation. IMPRESSION: Contracted gallbladder which simulates gallbladder wall thickening. No evidence of sabiha lithiasis or acute cholecystitis. No biliary ductal dilatation.
[2022-09-22 15:43] LABS: Urine Blood Trace-lysed (Negative); Urine Glucose Negative (Negative); Urine Protein Negative (Negative)
[2022-09-22 15:46] LABS: Absolute Lymphocytes (CBC) 3.1 K/uL (0.7-4.9); Hematocrit 39.1 % (36.0-45.0); Lymphocytes % 33.5 % (15.3-44.8); MCV 86.8 fL (80-100)
[2022-09-22 16:04] LABS: Albumin 3.9 g/dL (3.4-5.0); Bilirubin Total 0.3 mg/dL (0.2-1.0); Potassium 3.6 mmol/L (3.5-5.1); Protein, Total 7.4 g/dL (6.4-8.2)
--- NOTE | 2022-09-22 16:56 | EDPHYS ---
Physician Documentation [facility] Name: Brissa Barrett Age: 32 yrs Sex: Female : 1990 Arrival Date: 09/22/2022 Time: 14:43 Bed 4 Private MD: ED Physician Lencho Obrien HPI: 09/22 17:39 This 32 yrs old Female presents to ER via Ambulatory with complaints of Abdominal Pain, kb gallbladder pain. 17:39 The patient presents with abdominal pain in the right upper quadrant. Onset: The kb symptoms/episode began/occurred yesterday. The symptoms do not radiate. Associated signs and symptoms: none. The symptoms are described as waxing/waning. Modifying factors: The symptoms are alleviated by nothing, the symptoms are aggravated by food. Severity of pain: At its worst the pain was moderate in the emergency department the pain is unchanged. The patient has not experienced similar symptoms in the past. The patient has been recently seen at an urgent care. Pt reports RUQ pain that started yesterday, got worse after eating peppers and carrot today. Reports she has had this same pain twice in the past, but nothing was found. . 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 - Social history:: Smoking status: Patient denies any tobacco usage or history of. ROS: 17:35 Constitutional: Negative for fever, chills, and weight loss. kb 17:35 Abdomen/GI: Positive for abdominal pain, Negative for nausea, vomiting, and diarrhea. 17:35 All other systems are negative. Exam: 17:35 Constitutional: This is a well developed, well nourished patient who is awake, alert, kb and in no acute distress. Head/Face: Normocephalic, atraumatic. ENT: Moist Mucous membranes Cardiovascular: Regular rate and rhythm with a normal S1 and S2. No gallops, murmurs, or rubs. No pulse deficits. Respiratory: Respirations even and unlabored. No increased work of breathing. Talking in full sentences Skin: Warm, dry with normal turgor. Normal color. MS/ Extremity: Pulses equal, no cyanosis. Neurovascular intact. Full, normal range of motion. Neuro: Awake and alert, GCS 15, oriented to person, place, time, and situation. Moves all extremities. Normal gait. Psych: Awake, alert, with orientation to person, place and time. Behavior, mood, and affect are within normal limits. 17:35 Abdomen/GI: Inspection: abdomen appears normal, Bowel sounds: normal, Palpation: soft, in all quadrants, moderate abdominal tenderness, in the right upper quadrant. Vital Signs: 14:45 BP 138 / 95; Pulse 81; Resp 20 S; Temp 97.9(O); Pulse Ox 99% on R/A; Weight 86.18 kg kc6 (R); Height 5 ft. 11 in. (180.34 cm) (R); Pain 7/10; 16:05 BP 127 / 65; Pulse 73; Resp 16 S; Pulse Ox 97% on R/A; aa5 17:05 BP 116 / 68; Pulse 70; Resp 15; Temp 97.9; Pulse Ox 98% ; Pain 2/10; jl7 14:45 Body Mass Index 26.50 (86.18 kg, 180.34 cm) kc6 MDM: 14:58 Patient medically screened. kb 17:29 Differential diagnosis: cholecystitis, Cholelithiasis, gastritis, gastroesophageal kb reflux disease. Data reviewed: vital signs, nurses notes. Data interpreted: Pulse oximetry: on room air is 98 %. Interpretation: normal. 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 ED course: Diagnostic test considered but not performed: CT scan considered and discussed with pt. Symptoms are consistent with biliary colic. Pt will follow up with GI for possible hida scan. History obtained from: pt . 09/22 14:48 Order name: CBC with Diff; Complete Time: 15:48 kb 09/22 14:48 Order name: CMP; Complete Time: 16:08 kb 09/22 14:48 Order name: Lipase; Complete Time: 16:08 kb 09/22 14:48 Order name: Abdomen Limited US; Complete Time: 15:23 kb 09/22 15:43 Order name: Urine Dipstick-Ancillary; Complete Time: 15:43 EDMS 09/22 14:48 Order name: IV Saline Lock; Complete Time: 15:42 kb 09/22 14:48 Order name: Labs collected and sent; Complete Time: 15:42 kb Administered Medications: 15:40 Drug: NS 0.9% 1000 ml Route: IV; Rate: 1 bolus; Site: right antecubital; aa5 17:00 Follow up: IV Status: Completed infusion; IV Intake: 1000ml jl7 15:43 Drug: TORadol - (ketorolac) 15 mg Route: IVP; Site: right antecubital; aa5 16:13 Follow up: Response: No adverse reaction; Pain is decreased jl7 15:44 Drug: Zofran (Ondansetron) 4 mg Route: IVP; Site: right antecubital; aa5 17:07 Follow up: Response: No adverse reaction jl7 Disposition: 17:56 Co-signature as Attending Physician, Lencho Obrien MD. rn Disposition Summary: 09/22/22 16:56 Discharge Ordered Location: Home kb Condition: Stable kb Diagnosis - Upper abdominal pain, unspecified kb Followup: kb - With: Private Physician - When: 2 - 3 days - Reason: Recheck today's complaints, Continuance of care, Re-evaluation by your physician Followup: kb - With: Emergency Department - When: As needed - Reason: Worsening of condition Discharge Instructions: - Discharge Summary Sheet kb - Biliary Colic, Adult kb Forms: - Medication Reconciliation Form kb - Thank You Letter kb - Antibiotic Education kb - Prescription Opioid Use kb Prescriptions: - Protonix 40 mg Oral Tablet - take 1 tablet by ORAL route once daily; 30 tablet; Refills: 0, Product kb Selection Permitted - Zofran 4 mg Oral Tablet - take 1 tablet by ORAL route every 6 hours As needed; 20 tablet; Refills: 0, kb Product Selection Permitted - dicyclomine 20 mg Oral Tablet - take 1 tablet by ORAL route 4 times per day As needed; 20 tablet; Refills: 0, kb Product Selection Permitted Signatures: Dispatcher [employer] Natalie Weaver FNP-C FNP-Ckb Lencho Obrien MD MD rn Jonh, Delma, RN RN aa5 Sharifa Mederos RN RN kc6 Walter Stevens RN jl7
--- NOTE | 2022-09-22 16:56 | ER ---
Nurse's Notes [facility] Name: Brissa Barrett Age: 32 yrs Sex: Female : 1990 Arrival Date: 09/22/2022 Time: 14:43 Bed 4 Private MD: Diagnosis: Upper abdominal pain, unspecified Presentation: 09/22 14:45 Chief complaint: Patient states: client stated she was here a couple weeks ago and was kc6 told she has constipation. stated RUQ pain started again yesterday after lunch and went to [facility] last night. Coronavirus screen: Vaccine status: Patient reports being unvaccinated. At this time, the client does not indicate any symptoms associated with coronavirus-19. Ebola Screen: No symptoms or risks identified at this time. Initial Sepsis Screen: Does the patient meet any 2 criteria? No. Patient's initial sepsis screen is negative. Does the patient have a suspected source of infection? No. Patient's initial sepsis screen is negative. Risk Assessment: Do you want to hurt yourself or someone else? Patient reports no desire to harm self or others. Onset of symptoms was September 21, 2022. 14:45 Method Of Arrival: Ambulatory [facility] 14:45 Acuity: JUAN R 3 kc6 Triage Assessment: 14:49 General: Appears in no apparent distress. uncomfortable, Behavior is calm, cooperative, kc6 appropriate for age. Pain: Complains of pain in right upper quadrant Pain radiates to back Pain currently is 7 out of 10 on a pain scale. Quality of pain is described as sharp, Pain began 1 day ago. Is continuous, Alleviated by nothing. Aggravated by eating, drinking, Noted to be guarding, moaning, resistant to movement, Also complains of no other associated symptoms. GI: Reports nausea, Patient currently denies diarrhea, vomiting. 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 - Social history:: Smoking status: Patient denies any tobacco usage or history of. Screenin:[facility] Fall Risk Assessment (Adult) History of falling in the last 3 months, aa5 including since admission No falls in past 3 months (0 pts) Confusion or Disorientation No (0 pts) Intoxicated or Sedated No (0 pts) Impaired Gait No (0 pts) Mobility Assist Device Used No (0 pt) Altered Elimination No (0 pt) Score/Fall Risk Level 0 - 2 = Low Risk. Abuse screen: Denies threats or abuse. Nutritional screening: No deficits noted. Tuberculosis screening: No symptoms or risk factors identified. Assessment: 15:12 Reassessment: Pt back from US.To bedside to start IV and to administer medications, pt aa5 states "can you please wait until my gets here because I don't do well with IVs?". Awaiting pt's . . 15:12 General: Appears uncomfortable, Behavior is anxious. Pain: Complains of pain in right aa5 upper quadrant Pain currently is 7 out of 10 on a pain scale. Quality of pain is described as sharp, Pain began 1 day ago. Is continuous. Neuro: Level of Consciousness is awake, alert, obeys commands, Oriented to person, place, time, situation. Cardiovascular: Heart tones S1 S2 present Rhythm is regular. Respiratory: Airway is patent Respiratory effort is even, unlabored, Respiratory pattern is regular, symmetrical. GI: Abdomen is round non-distended, Bowel sounds present X 4 quads. Abdomen is tender to palpation in right upper quadrant. : No signs and/or symptoms were reported regarding the genitourinary system. EENT: No signs and/or symptoms were reported regarding the EENT system. Derm: Skin is pink, warm \\T\\ dry. Musculoskeletal: Range of motion: intact in all extremities. 15:44 Reassessment: Patient is alert, oriented x 3, equal unlabored respirations, skin aa5 warm/dry/pink. 17:05 Reassessment: Patient appears in no apparent distress at this time. Patient and/or jl7 family updated on plan of care and expected duration. Pain level reassessed. Patient is alert, oriented x 3, equal unlabored respirations, skin warm/dry/pink. Pain rated 2/10 at time of discharge. Patient states symptoms have improved. Vital Signs: 14:45 BP 138 / 95; Pulse 81; Resp 20 S; Temp 97.9(O); Pulse Ox 99% on R/A; Weight 86.18 kg kc6 (R); Height 5 ft. 11 in. (180.34 cm) (R); Pain 7/10; 16:05 BP 127 / 65; Pulse 73; Resp 16 S; Pulse Ox 97% on R/A; aa5 17:05 BP 116 / 68; Pulse 70; Resp 15; Temp 97.9; Pulse Ox 98% ; Pain 2/10; jl7 14:45 Body Mass Index 26.50 (86.18 kg, 180.34 cm) [facility] ED Course: 14:43 Patient arrived in ED. am2 14:44 Natalie Linares FNP-C [facility]. kb 14:44 Lencho Obrien MD is Attending Physician. kb 14:49 Triage completed. kc6 14:49 Arm band placed on. kc6 15:02 Delma Borja, RN is Primary Nurse. aa5 15:11 Abdomen Limited US In Process Unspecified. EDMS 15:12 Patient has correct armband on for positive identification. Call light in reach. aa5 15:36 Initial lab(s) drawn, by me, sent to lab. Inserted saline lock: 20 gauge in right aa5 antecubital area, using aseptic technique. Blood collected. 17:05 No provider procedures requiring assistance completed. IV discontinued, intact, jl7 bleeding controlled, No redness/swelling at site. Pressure dressing applied. Administered Medications: 15:40 Drug: NS 0.9% 1000 ml Route: IV; Rate: 1 bolus; Site: right antecubital; aa5 17:00 Follow up: IV Status: Completed infusion; IV Intake: 1000ml jl7 15:43 Drug: TORadol - (ketorolac) 15 mg Route: IVP; Site: right antecubital; aa5 16:13 Follow up: Response: No adverse reaction; Pain is decreased jl7 15:44 Drug: Zofran (Ondansetron) 4 mg Route: IVP; Site: right antecubital; aa5 17:07 Follow up: Response: No adverse reaction jl7 Medication: 15:18 VIS not applicable for this client. aa5 Intake: 17:00 IV: 1000ml; Total: 1000ml. jl7 Outcome: 16:56 Discharge ordered by . kb 17:05 Discharged to home ambulatory. jl7 17:05 Condition: stable 17:05 Discharge instructions given to patient, Instructed on discharge instructions, follow up and referral plans. medication usage, Demonstrated understanding of instructions, follow-up care, medications, Prescriptions given X 3. 17:08 Patient left the ED. jl7 Signatures: Dispatcher [employer] EDMS Natalie Linares, LABOR RELATIONS WORKER-C LABOR RELATIONS WORKER-Delma Feldman RN RN aa5 Walter Stevens RN RN jl7 Meghna Parker Kaitlyn, RN RN kc6 Corrections: (The following items were deleted from the chart) 16:42 14:45 Chief complaint: Patient states: client stated she was here a couple weeks ago aa5 and was told she has constipation. stated RUQ pain started again yesterday after lunch and went to [facility] last night. kc6
[2022-09-22 17:16] VITALS: TEMP 97.9
[2022-09-22 17:19] VITALS: BP 116/68; O2SAT 98
== END 2022-09-22 17:08 | disposition home or self-care (01) ==
LOC: ER 14:43
DX: R10.11 Right upper quadrant pain (principal); R11.0 Nausea
CPT/HCPCS: 96361; 85025; 36415; 81003; 83690; 80053; 76705; 96375; 96374; 99284; J7030; J2405

== ENCOUNTER 2022-11-21 11:10 | Observation (INO) | payer BC ==
[2022-11-21] MEDS ORDERED: Ringers Lactate 1,000 ML IV ONE ×2 (12:02→14:29)
[2022-11-21] MEDS ORDERED: ACETAMINOPHEN 500 MG TAB ONE (12:13)
[2022-11-21] MEDS ORDERED: CELECOXIB 100 MG CAPSULE ONE (12:13)
[2022-11-21] MEDS ORDERED: propofoL 200 MG/20 ML VIAL IV ONE (13:01)
[2022-11-21] MEDS ORDERED: FENTANYL CITR 100 MCG/2 ML ONE ×2 (13:02→14:17)
[2022-11-21] MEDS ORDERED: MIDAZOLAM HCL 2 MG/2 ML INJ ONE (13:02)
[2022-11-21] MEDS ORDERED: LIDOCAINE 2% MPF 5 ML VIAL ONE (13:03)
[2022-11-21] MEDS ORDERED: ROCURONIUM 50 MG/5 ML VIAL IV ONE (13:03)
[2022-11-21] MEDS ORDERED: ONDANSETRON 4 MG/2 ML VIAL ONE (13:04)
[2022-11-21] MEDS ORDERED: dexAMETHasone 10 MG/ML VIAL ONE (13:04)
[2022-11-21] MEDS ORDERED: KETOROLAC 30 MG/ML INJ ONE (13:05)
[2022-11-21] MEDS: CEFOXITIN SODIUM 1 GM/VIAL ONE ×2 (13:10→13:31)
--- NOTE | 2022-11-21 13:14 | P.HP ---
Date of Service: 11/21/22 PC: This 32-year-old female presents for a laparoscopic cholecystectomy with a cholangiogram. HPC: Patient has been having increasing bouts of right upper quadrant abdominal pain, radiating into her back, right between her shoulder blades. Has had numerous visits to the emergency room. Has seen a GI doctor and on work-up was found to have an abnormal HIDA scan. PSHx: 4 para 4 PMHx: Has had upper endoscopies, which apparently shows ulcers, esophagitis. Social Hx: Allergic to latex, and adhesives Sys R: Otherwise healthy female. No cough, wheeze, shortness of breath. No chest pain or palpitations. Denies any urinary complaints. Has associated dyspepsia flatulence and discomfort when she eats fatty foods. O/E: Awake alert vital signs are stable HEENT: Nonicteric Chest: Air entry equal bilaterally Abd: Soft nontender today Moira: Intact Data: Within normal limits. On work-up was found to have a HIDA scan of 38%. Impression: Chronic cholecystitis with biliary dyskinesia Plan: I have discussed with the patient her symptoms and findings. I will take her to the operating room for laparoscopic cholecystectomy with a cholangiogram. The risks of this procedure have been discussed. The possibility of bleeding, infection, injury to bile ducts blood vessels and intestines has been described. The possible need for further surgeries and procedures was outlined. Pain and discomfort after surgery and ongoing stomach issues were explained. She understands and wants to proceed.
[2022-11-21] MEDS ORDERED: EPHEDRINE SULF 50 MG/ML VIAL ONE (14:00)
[2022-11-21] MEDS ORDERED: GLYCOPYRROLATE 0.2 MG/ML SYR ONE (14:28)
[2022-11-21] MEDS ORDERED: NEOSTIGMINE 1 MG/ML -10 ML VIAL ONE (14:29)
--- NOTE | 2022-11-21 14:31 | P.OP ---
Preoperative diagnosis: Chronic cholecystitis with biliary colic Postoperative diagnosis: The same Primary procedure: Laparoscopic cholecystectomy, Secondary procedure: Cholangiogram Other procedure(s): Kirit block Anesthesia: General Estimated blood loss: Less than 10 cc Specimen: 1 gallbladder Operative Technique: The patient brought the operating room and placed supine on the table. After the induction of adequate general endotracheal anesthesia, the area of the abdomen was prepped with a DuraPrep solution, she was draped in the usual aseptic manner. A subumbilical incision was made. This was brought down through the skin and subcutaneous tissue. The Visiport was used to enter the peritoneal cavity and created pneumoperitoneum to approximately 12 mmHg. Under direct vision a 5 mm trocar was placed in the upper midline, and 2 other 5 mm trocars on the right lateral side of the abdomen Attention was now turned towards the right upper quadrant. We could see a distended gallbladder. There were noted to be marked dense adhesions of the omentum and colon to this area. These were taken down using blunt and sharp dissection. The gallbladder now having been isolated we traced down towards Rosen's pouch. Again there were adhesions in this area that were taken down in the usual manner. Applying lateral traction on Rosen's pouch were able to expose the cystic duct and artery. These were dissected free to obtain the critical view. A clip was then placed placed between the gallbladder and the cystic duct. An opening was made into the cystic duct through which we obtained a normal intraoperative cholangiogram. It was interesting to see the amount of valves in the cystic duct which may explain some of her gallbladder dysfunction. Clips were now placed on the distal portion of the cystic duct. The cystic duct was transected. The cystic artery was identified clipped and divided in the usual manner. The gallbladder was now dissected free from the liver bed. 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 This was clipped at the base and divided. Another aberrant duct was also noted in that area and this again was clipped in the usual manner. At this point the gallbladder had been detached, placed into an Endo Catch, and brought out through the umbilical trocar site. Attention was turned back towards the anterior abdominal wall. A bilateral tap block was done using 0.25% Marcaine. Approximately 8 cc of Marcaine on either side. The Endo Close was then used to approximate the umbilical fascial defect. The pneumoperitoneum was collapsed, the irrigating fluid aspirated from the peritoneal cavity, and jose applied to the skin. At the end of the procedure she was stable was sent to the recovery room. Needle sponge instrument count were correct. No drains were placed. Complications: None Transferred to: Recovery Room Condition: Good
[2022-11-21] MEDS: HYDROMORPHONE HCL 1 MG/ML INJ ONE ×6 (14:44→15:26)
[2022-11-21] MEDS ORDERED: MORPHINE 2 MG/ML SYR IV PRN (14:47)
[2022-11-21] MEDS ORDERED: ONDANSETRON 4 MG/2 ML VIAL IV PRN (14:47)
[2022-11-21] MEDS: Ringers Lactate 1,000 ML IV SCH ×2 (15:00→21:19)
--- OUTSIDE RECORDS SUMMARY | 2022-11-21 15:02 | XMS REPORT | Continuity of Care Document ---
:1990 Author Organization [facility] t Address [address] [place] [address] [place] [address] Care Team Providers Name Role Phone BRADLEY BRYAN Attending Clinician Unavailable CHADWICK CONSTANTINO Attending Clinician Unavailable ALBERT TOLLIVER Attending Clinician Unavailable Doctor Unassigned, [place] Attending Clinician Unavailable Payers Payer Name Policy Type Policy Number Effective Date Expiration Date S ource OUT OF STATE [id number] 2020 00:00:00 BCBS - PPO - BCBS [employer] [place] [id number] 2019 00:00:00 Problems This patient has no known problems. Allergies, Adverse Reactions, Alerts Allergy Allergy Status Severity Reaction(s) Onset Inactive Treating Comm ents Source Name Type Date Date Clinician TREE Food Active Swelling 2019-0 Univers NUTS 2-18 ity of 00:00: [address] PINEAPPL DRUG Active Swelling 2019-0 Univer s E FLAVOR INGREDI 2-18 ity of 00:00: [address] NIFEDIPI DRUG Active Swelling 2018-0 Univer s NE INGREDI 2-03 ity of 00:00: [address] LATEX DRUG Active Hives 2018- Univers INGREDI 0-05 ity of 00:00: [address] NO KNOWN Drug Active Univers ALLERGIE Class ity of S [facility] Social History Social Habit Start Date Stop Date Quantity Comments Source Sex Assigned At Uni versity [facility] Smoking Status Start Date Stop Date Source Unknown if ever smoked Universit y [facility] Medications This patient has no known medications. Procedures Procedure Date / Time Performed Performing Clinician Sour e ASSIGNMENT OF BENEFITS 2020-09-20 21:25:28 Doctor Unassigned, No [facility] Encounters Start End Encounter Admission Attending Care Care Encounter Source Date/Time Date/Time Type Type Clinicians Facility Department ID 2021-08-15 2021-08-15 Outpatient GENARO BRYAN [facility] [id number] [facility] 12:40:09 13:07:39 BRADLEY Sommers e of Medicin e 2021-03-27 2021-03-27 Outpatient GENARO CONSTANTINO [facility] [id number] [facility] 15:21:14 15:45:06 CHADWICK Sommers e of Medicin e 2020-11-21 2020-11-21 Outpatient R ALBERT TOLLIVER [facility] [id number] Univers 09:00:00 09:00:00 [id number] ity [facility] 2020-11-21 2020-11-21 Outpatient R ALBERT TOLLIVER [facility] [id number] Univers 09:00:00 09:00:00 ity [facility] 2020-10-17 2020-10-17 Outpatient R ALBERT TOLLIVER [facility] [id number] Univers 00:00:00 00:00:00 [id number] ity [facility] 2020-10-06 2020-10-06 Outpatient R ALBERT TOLLIVER [facility] [id number] Univers 17:30:00 17:30:00 [id number] ity [facility] 2020-10-04 2020-10-04 Outpatient R [facility] [id number] Univers 09:15:00 09:15:00 [id number] ity [facility] 2020-10-04 2020-10-04 Outpatient R [facility] [id number] Univers 09:15:00 09:15:00 ity [facility] 2020-09-20 2020-09-20 Outpatient R ALBERT TOLLIVER [facility] [id number] Univers 15:30:00 15:30:00 ity [facility] 2020-09-20 2020-09-20 Orders Doctor PHILIP [id number] Univers 00:00:00 00:00:00 Only Unassigned, EMMY [id number] ity of [facility] [id number] Marcus as [id number] [place] [id number] [address] Results This patient has no known results.
--- NOTE | 2022-11-21 15:17 | RAD REPORT ---
EXAM DESCRIPTION: RAD - Cholangiogram Oper-Xray Or - 11/21/2022 2:52 pm CLINICAL HISTORY: LAP MACIE W/ IOC COMPARISON: None available. FINDINGS: Five Images were sent to PACS, documenting needle positions during an image guided cholang iogram procedure. No radiologist was available for the procedure, nor will any image interpretation h e provided. Please refer to the procedural report for additional details. Fluoroscopy time: 0.3 Minutes. IMPRESSION: Documentation of fluoroscopy utilization as above.
[2022-11-21 15:19] VITALS: O2SAT 97
[2022-11-21] MEDS: HYDROCODONE/APAP 7.5/325 MG TAB PO PRN (17:08)
[2022-11-21 17:50] VITALS: BMI 33.3
[2022-11-21] MEDS ORDERED: ACETAMINOPHEN 500 MG TAB PO PRN (20:58)
[2022-11-22] MEDS: HYDROCODONE/APAP 7.5/325 MG TAB PO PRN (03:48)
[2022-11-22 06:41] VITALS: BP 109/60; TEMP 97.5
== END 2022-11-22 08:03 | disposition home or self-care (01) ==
LOC: OR 11:10 → 2ND 14:59
PROVIDERS: ADMIT Surgery; ATTEND Surgery
PROC: BF13YZZ Fluoroscopy of Gallbladder and Bile Ducts using Other Contrast (ICD-10-PCS; 2022-11-21)
PROC: 0FT44ZZ Resection of Gallbladder, Percutaneous Endoscopic Approach (ICD-10-PCS; principal; 2022-11-21 10:00)
DX: K80.44 Calculus of bile duct with chronic cholecystitis without obstruction (principal)
CPT/HCPCS: 88304; 74300; 94010; 47563; J2704; J2710; J2001; J2250; J3010 ×2; J1100; J1170 ×3; J0694; J2405; J7120 ×3

== ENCOUNTER 2023-05-16 11:51 | Emergency (ER) | payer BC ==
--- OUTSIDE RECORDS SUMMARY | 2023-05-16 11:54 | XMS REPORT | Continuity of Care Document ---
:1990 Author Organization [facility] t Address [address] [place] [address] [place] [id number] Care Team Providers Name Role Phone Nabil CORREA, Heron Harris Primary Care Physician [phone] ML CAMACHO Attending Clinician Unavailable Heron Ferrer MD Attending Clinician Doctor Unassigned, [employer] Attending Clinician Unavailable MARYAN LERMA Attending Clinician Unavailable ALBERT TOLLIVER Attending Clinician Unavailable Payers Payer Name Policy Type Policy Number Effective Date Expiration Date S nicholas [facility] [id number] 2019 00:00:00 Problems Condition Condition Condition Status Onset Resolution Last Treating Co mments Source Name Details Category Date Date Treatment Clinician Date Female Female Disease Active Univers sterility sterility 9-13 ity of 00:00: [address] Branch Allergic Allergic Disease Active Unive rs rhinitis rhinitis 3-13 ity of 00:00: [address] Branch Other Other Disease Active Univers secondary secondary 3-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 10/03/2018 : TORCH titers - HSV-2 IgG positive[ ] 32w pp given risks for /e jordan term delivery: TORCH titers - HSV-2 IgG positive[ ] 32w pp given risks for /e jordan term delivery Intrauteri Intrauteri Disease Active 2017-09 Overview : Univers ne device ne device 0-05 Formattin i ty of (IUD) (IUD) 00:00: g of this [place] contracept contracept 00 note Me dical alicia alicia might be Branch failure failure different resulting resulting from the in in original. Became with IUD in placeIUD removed at [facility] prior to 8wSubchor ionic hemorrhag e seen on US at OSH and Dating US with Dr Elliott Allergies, Adverse Reactions, Alerts Allergy Allergy Status Severity Reaction(s) Onset Inactive Treating Comm ents Source Name Type Date Date Clinician TREE Food Active Swelling Univers NUTS 2-18 ity of 00:00: [place] 00 Medical Branch PINEAPPL DRUG Active Swelling 2018-0 Univer s E FLAVOR INGREDI 2-18 ity of 00:00: [place] 00 Medical Branch Tree Propensi Active Swelling 2018-0 Univer s Nuts ty to 2-18 ity of adverse 00:00: [place] reaction 00 Medical s Branch Pineappl Propensi Active Swelling 2018-0 Univ ers e Flavor ty to 2-18 ity of adverse 00:00: [place] reaction 00 Medical s Branch Nifedipi Propensi Active Swelling 2018-0 Pt states U nivers ne ty to 2-03 Procardia ity of adverse 00:00: gives her [place] reaction 00 a Medical s headacheP Branch t states Procardia gives her a headache NIFEDIPI DRUG Active Swelling 2018-0 Univer s NE INGREDI 2-03 ity of 00:00: [place] 00 Medical Branch Latex Propensi Active Swelling 2017-09 Univer s ty to 0-05 ity of adverse 00:00: [place] reaction 00 Medical s Branch LATEX DRUG Active Hives 2017-09 Univers INGREDI 0-05 ity of 00:00: [place] 00 Medical Branch NO KNOWN Drug Active Univers ALLERGIE Class ity of S [facility] Social History Social Habit Start Date Stop Date Quantity Comments Source Gender identity Universit y [facility] History of Social 2023-03-29 2023-03-29 Univers ity of function 00:00:00 00:00:00 [facility] Alcohol Comment 2023-03-29 2023-03-29 " About 2 drinks Uni versity of 00:00:00 00:00:00 a year" [facility] Alcohol intake 2023-03-29 2023-03-29 Lifetime University of 00:00:00 00:00:[address] non-drinker [facility] [place] Tobacco use and 2020-09-20 2020-09-20 Smokeless Universit y of exposure 00:00:00 00:00:00 tobacco non-user [facility] dical [place] Sex Assigned [birth year] Universit y of 00:00:00 00:00:00 [facility] Smoking Status Start Date Stop Date Source Unknown if ever smoked [facility] Never smoked tobacco [facility] Medications Ordered Filled Start Stop Current Ordering Indication Dosage Frequency Signature Comments Components Source Medication Medication Date Date Medication? Clinician (SIG) [facility] Yes Take by Uni vers N ORAL 7-14 mouth. ity of 09:05: [address] mecobalamin Yes Take by Uni vers (B12 ACTIVE 7-14 mouth. ity of ORAL) 09:05: [address] MULTIVITAMI Yes Take by Uni vers N ORAL 7-14 mouth. ity of 09:05: [address] mecobalamin Yes Take by Uni vers (B12 ACTIVE 7-14 mouth. ity of ORAL) 09:05: [address] MULTIVITAMI Yes Take by Uni vers N ORAL 7-14 mouth. ity of 09:05: [address] mecobalamin Yes Take by Uni vers (B12 ACTIVE 7-14 mouth. ity of ORAL) 09:05: [address] mecobalamin Yes Take by Uni vers (B12 ACTIVE 1-05 mouth. ity of ORAL) 15:59: [address] cholecalcif Yes Take by Uni vers jacqueline, 1-05 mouth. ity of vitamin D3, 15:59: [place] (D-3-5 46 Medical ORAL) [place] cholecalcif Yes Take by Uni vers jacqueline, 1-05 mouth. ity of vitamin D3, 15:59: [place] (D-3-5 46 Medical ORAL) [place] cholecalcif Yes Take by Uni vers jacqueline, 1-05 mouth. ity of vitamin D3, 15:59: [place] (D-3-5 46 Medical ORAL) Branch cholecalcif Yes Take by Uni vers jacqueline, 1-05 mouth. ity of vitamin D3, 15:59: [place] (D-3-5 46 Medical ORAL) Branch ascorbic Yes Take by Univer s acid 1-05 mouth. ity of (VITAMIN C 15:50: [place] ORAL) 50 Medical Branch MULTIVITAMI Yes Take by Uni vers N ORAL 1-05 mouth. ity of 15:50: [place] 50 Medical Branch ascorbic Yes Take by Univer s acid 1-05 mouth. ity of (VITAMIN C 15:50: [place] ORAL) 50 Medical Branch ascorbic Yes Take by Univer s acid 1-05 mouth. ity of (VITAMIN C 15:50: [place] ORAL) 50 Medical Branch ascorbic Yes Take by Univer s acid 1-05 mouth. ity of (VITAMIN C 15:50: [place] ORAL) [address] [place] [address] Immunizations Ordered Filled Immunization Date Status Comments [facility] e Immunization Name Name [facility] 2013-09-16 Completed [facility] 00:00:00 [facility] 2013-09-16 Completed [facility] 00:00:00 [facility] 2013-09-16 Completed [facility] 00:00:00 [facility] 2013-09-16 Completed [facility] 00:00:00 [facility] Vital Signs Vital Name Observation Time Observation Value Comments Source Systolic blood 2023-03-29 14:04:00 137 mm[Hg] [facility] pressure [facility] Diastolic blood 2023-03-29 14:04:00 84 mm[Hg] Unive rsity of pressure [facility] Heart rate 2023-03-29 14:04:00 77 /min [facility] Body temperature 2023-03-29 14:04:00 36.78 Susu [facility] [place] [facility] Respiratory rate 2023-03-29 14:04:00 16 /min [facility] Body height 2023-03-29 14:04:00 180.3 cm [facility] Body weight 2023-03-29 14:04:00 92.534 kg [facility] BMI 2023-03-29 14:04:00 28.45 kg/m2 [facility] Oxygen saturation in 2023-03-29 14:04:00 99 /min [facility] Arterial blood by [facility] Pulse oximetry [place] Procedures Procedure Date / Time Performed Performing Clinician Sour e ASSIGNMENT OF BENEFITS 2023-03-29 13:53:03 Doctor Unassigned, No [facility] ASSIGNMENT OF BENEFITS 2020-09-20 21:25:28 Doctor Unassigned, No [facility] Encounters Start End Encounter Admission Attending Care Care Encounter Source Date/Time Date/Time Type Type Clinicians Facility Department ID 2023-03-29 2023-03-29 Outpatient ML POSEY [facility] [id number] Univers 08:30:00 10:21:27 ity [facility] 2023-03-29 2023-03-29 Office Heron Ferrer [facility] [id number]. [id number] [facility] 08:30:00 10:21:27 Visit Ml Camacho PRIMARY [id number] ity of [id number] [id number] Or dical 390 Branch 2023-03-29 2023-03-29 Orders Doctor PHILIP [id number] Univers 00:00:00 00:00:00 Only Unassigned, EMMY [id number] ity of [employer] [facility] [id number] [place] as [id number] [facility] 009 Branch 2023-02-13 2023-02-13 Emergency E MARIA GUADALUPE, MHBL MHBL [id number] MHBL 17:10:00 20:28:00 SABHA 2020-11-21 2020-11-21 Outpatient ALBERT PERRY [facility] [id number] Univers 09:00:00 09:00:00 [id number] ity [facility] 2020-11-21 2020-11-21 Outpatient ALBERT PERRY [facility] [id number] Univers 09:00:00 09:00:00 ity [facility] 2020-10-17 2020-10-17 Outpatient ALBERT PERRY [facility] [id number] Univers 00:00:00 00:00:00 [id number] ity [facility] 2020-10-06 2020-10-06 Outpatient R ALBERT TOLLIVER [facility] [id number] 17:30:00 17:30:00 [id number] ity [facility] 2020-10-04 2020-10-04 Outpatient R [facility] [id number] Univers 09:15:00 09:15:00 [id number] ity [facility] 2020-10-04 2020-10-04 Outpatient R [facility] [id number] Univers 09:15:00 09:15:00 ity [facility] 2020-09-20 2020-09-20 Outpatient R ALBERT TOLLIVER [facility] [id number] Univers 15:30:00 15:30:00 ity [facility] 2020-09-20 2020-09-20 Orders Doctor PALACIOS [id number] Univers 00:00:00 00:00:00 Only Unassigned, EMMY [id number] ity of [employer] [facility] [id number] [place] [id number] [place] [address] Branch Results This patient has no known results.
[2023-05-16] MEDS ORDERED: DIPHENHYDRAMINE 50 MG/ML VIAL ONE (12:17)
[2023-05-16] MEDS ORDERED: FAMOTIDINE 20 MG/2 ML VIAL IV ONE (12:17)
--- NOTE | 2023-05-16 12:44 | ER ---
Nurse's Notes [facility] Name: Brissa Barrett Age: 33 yrs Sex: Female : 1990 Arrival Date: 05/16/2023 Time: 11:51 Bed 12 Private MD: Diagnosis: Allergic Reaction Presentation: 05/16 11:57 Chief complaint: EMS states: "Toned out for having a allergic reaction. School nurse [email or web address] gave 2 Benadryl. 20 g right AC. Gave 125 Solu-Medrol and NS 0.9 going. BGL 100.". Coronavirus screen: At this time, the client does not indicate any symptoms associated with coronavirus-19. Ebola Screen: No symptoms or risks identified at this time. Initial Sepsis Screen: Does the patient meet any 2 criteria? No. Patient's initial sepsis screen is negative. Does the patient have a suspected source of infection? No. Patient's initial sepsis screen is negative. Risk Assessment: Do you want to hurt yourself or someone else? Patient reports no desire to harm self or others. Onset of symptoms was May 16, 2023. 11:57 Method Of Arrival: EMS: [facility] [email or web address] 11:57 Acuity: JUAN R 3 mb9 Triage Assessment: 12:02 General: Appears in no apparent distress. Behavior is calm, cooperative. Pain: Denies mb9 pain. EENT: Throat is clear. Neuro: Ocampo Agitation-Sedation Scale (RASS): 0 - Alert and Calm. Cardiovascular: Patient's skin is warm and dry. Respiratory: Airway is patent Respiratory effort is even, unlabored, Respiratory pattern is regular, symmetrical, Breath sounds are clear bilaterally. GI: Abdomen is flat, non-distended. : No signs and/or symptoms were reported regarding the genitourinary system. Derm: Skin is pink, warm \\T\\ dry. Musculoskeletal: Range of motion: intact in all extremities. 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 - Social history:: Smoking status: Patient denies any tobacco usage or history of. Screenin:03 [facility] ED Fall Risk Assessment (Adult) History of falling in the last 3 months, mb9 including since admission No falls in past 3 months (0 pts) Confusion or Disorientation No (0 pts) Intoxicated or Sedated No (0 pts) Impaired Gait No (0 pts) Mobility Assist Device Used No (0 pt) Altered Elimination No (0 pt) Score/Fall Risk Level 0 - 2 = Low Risk Oriented to surroundings, Maintained a safe environment, Educated pt \\T\\ family on fall prevention, incl call for assistance when getting out of bed. Abuse screen: Denies threats or abuse. Nutritional screening: No deficits noted. Tuberculosis screening: No symptoms or risk factors identified. Assessment: 12:03 Reassessment: see triage assessment. mb9 12:49 Reassessment: Patient and/or family updated on plan of care and expected duration. Pain mb9 level reassessed. Patient is alert, oriented x 3, equal unlabored respirations, skin warm/dry/pink. Patient states feeling better. Patient states symptoms have improved. Vital Signs: 11:57 BP 126 / 69; Pulse 55; Resp 18; Temp 97.5; Pulse Ox 100% on R/A; Weight 89.81 kg; mb9 Height 5 ft. 11 in. ; Pain 0/10; 12:53 BP 138 / 84; Pulse 61; Resp 18; Pulse Ox 100% on R/A; mb9 11:57 Body Mass Index 27.62 (89.81 kg, 180.34 cm) mb9 11:57 Pain Scale: Adult mb9 ED Course: 11:57 Patient arrived in ED. mb9 11:57 Heron Steven DO is Attending Physician. ms3 12:01 Triage completed. mb9 12:01 Arm band placed on. mb9 12:03 Maintain EMS IV. Dressing intact. Good blood return noted. Site clean \\T\\ dry. Gauge \\T\\ mb 9 site: 20 g to right AC. 12:04 Radha Boyd RN is Primary Nurse. mb9 12:04 Placed in gown. Bed in low position. Call light in reach. Side rails up X 1. Client mb9 placed on continuous cardiac and pulse oximetry monitoring. NIBP monitoring applied. pet care attendant on. 12:43 Sera Nuno MD is Referral Physician. ms3 12:53 No provider procedures requiring assistance completed. IV discontinued, intact, mb9 bleeding controlled, No redness/swelling at site. Pressure dressing applied. Administered Medications: 12:05 Drug: diphenhydrAMINE IVP 12.5 mg Route: IVP; Site: right antecubital; mb9 12:30 Follow up: Response: No adverse reaction mb9 12:10 Drug: Famotidine IVP 20 mg Route: IVP; Site: right antecubital; mb9 12:30 Follow up: Response: No adverse reaction mb9 Medication: 12:04 VIS not applicable for this client. mb9 Outcome: 12:44 Discharge ordered by MD. ms3 12:53 Discharged to home ambulatory. mb9 12:53 Condition: stable 12:53 Discharge instructions given to patient, Instructed on discharge instructions, follow up and referral plans. Demonstrated understanding of instructions, follow-up care, medications, Prescriptions given X 1. 12:53 Patient left the ED. mb9 Signatures: Heron Steven DO DO ms3 Radha Boyd RN RN mb9 Corrections: (The following items were deleted from the chart) 12:02 12:02 Home Meds: progesterone micronized Oral; mb9 mb9
--- NOTE | 2023-05-16 12:44 | EDPHYS ---
Physician Documentation [facility] Name: Brissa Barrett Age: 33 yrs Sex: Female : 1990 Arrival Date: 05/16/2023 Time: 11:51 Bed 12 Private MD: ED Physician Heron Steven HPI: 05/16 12:02 This 33 yrs old Female presents to ER via EMS with complaints of allergic reaction. ms3 12:02 33-year-old female presents via [facility] for allergic reaction. Patient states ms3 she was seen at Dr. Nuno's office for a skin prick allergy test yesterday when she developed allergic reaction. In the office she was given an injection of medications. Patient states pharmacy did not have her medications last night. Patient states today her face became flushed and her throat felt funny. EMS administered 125 mg Solu-Medrol. Patient took 50 mg Benadryl prior to EMS arrival. 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 - Social history:: Smoking status: Patient denies any tobacco usage or history of. ROS: 12:50 Constitutional: Negative for fever, and chills. ms3 12:50 Cardiovascular: Negative for chest pain, and palpitations. Respiratory: Negative for shortness of breath, cough, wheezing, and pleuritic chest pain, Abdomen/GI: Negative for abdominal pain, nausea, vomiting, diarrhea, and constipation, MS/Extremity: Negative for injury and deformity, Skin: Negative for injury, rash, and discoloration. 12:50 ENT: Positive for Throat itchy. 12:50 All other systems are negative. Exam: 12:50 Constitutional: This is a well developed, well nourished patient who is awake, alert, ms3 and in no acute distress. Head/Face: Normocephalic, atraumatic. Neck: Trachea midline, no cervical lymphadenopathy. Supple, full range of motion without nuchal rigidity, or vertebral point tenderness. No Meningismus. Chest/axilla: Normal chest wall appearance and motion. Nontender with no deformity. Cardiovascular: Regular rate and rhythm with a normal S1 and S2. No gallops, murmurs, or rubs. Normal PMI, no JVD. No pulse deficits. Respiratory: Lungs have equal breath sounds bilaterally, clear to auscultation and percussion. No rales, rhonchi or wheezes noted. No increased work of breathing, no retractions or nasal flaring. Abdomen/GI: Soft, non-tender, with normal bowel sounds. No distension or tympany. No guarding or rebound. No evidence of tenderness throughout. Skin: Warm, dry with normal turgor. Normal color with no rashes, no lesions, and no evidence of cellulitis. MS/ Extremity: Pulses equal, no cyanosis. Neurovascular intact. Full, normal range of motion. Vital Signs: 11:57 BP 126 / 69; Pulse 55; Resp 18; Temp 97.5; Pulse Ox 100% on R/A; Weight 89.81 kg; mb9 Height 5 ft. 11 in. ; Pain 0/10; 12:53 BP 138 / 84; Pulse 61; Resp 18; Pulse Ox 100% on R/A; mb9 11:57 Body Mass Index 27.62 (89.81 kg, 180.34 cm) mb9 11:57 Pain Scale: Adult mb9 MDM: 11:58 Patient medically screened. ms3 12:01 Management of patient was discussed with the following: Commercial Construction Project Manager: Dr Nuno- Patient ms3 given IM Benadryl and Steroids in office after prick testing yesterday. Patient given Rx for oral steroids and told to continue PO Benadryl as needed.. 12:50 Differential diagnosis: anaphylaxis, Allergic reaction vs seasonal allergies. Data ms3 reviewed: vital signs, nurses notes, and as a result, I will discharge patient. I considered the following discharge prescriptions or medication management in the emergency department Medications were administered in the Emergency Department. See MAR. Historians other than the Patient: EMS: [facility] Enriquez. Counseling: I had a detailed discussion with the patient and/or guardian regarding the historical points, exam findings, and any diagnostic results supporting the discharge/admit diagnosis, the need for outpatient follow up, to return to the emergency department if symptoms worsen or persist or if there are any questions or concerns that arise at home. ED course: On reevaluation patient states her symptoms have improved. Patient states she would like to be discharged at this time. Patient is alert and orient x4, no apparent distress, nontoxic-appearing, ambulatory in emergency room, speaking full sentences. Return precautions discussed include shortness of breath, vomiting, worsening symptoms, or any other concerns. Patient given prescription for prednisone. Administered Medications: 12:05 Drug: diphenhydrAMINE IVP 12.5 mg Route: IVP; Site: right antecubital; mb9 12:30 Follow up: Response: No adverse reaction mb9 12:10 Drug: Famotidine IVP 20 mg Route: IVP; Site: right antecubital; mb9 12:30 Follow up: Response: No adverse reaction mb9 Disposition Summary: 05/16/23 12:44 Discharge Ordered Location: Home ms3 Condition: Stable ms3 Diagnosis - Allergic Reaction ms3 Followup: ms3 - With: Sera Nuno MD - When: 2 - 3 days - Reason: Recheck today's complaints Discharge Instructions: - Discharge Summary Sheet ms3 - Allergies, Adult ms3 Forms: - Medication Reconciliation Form ms3 - Thank You Letter ms3 - Antibiotic Education ms3 - Prescription Opioid Use ms3 - Patient Portal Instructions ms3 - Leadership Thank You Letter ms3 Prescriptions: - Prednisone 20 mg Oral Tablet - take 3 tablets by ORAL route once daily for 5 days; 15 tablet; Refills: 0, ms3 Product Selection Permitted Signatures: Heron Steven DO DO ms3 Radha Boyd RN RN mb9 Corrections: (The following items were deleted from the chart) 12:02 12:02 Home Meds: progesterone micronized Oral; oriana mb9 12:51 12:02 33-year-old. ms3 ms3
[2023-05-16 13:09] VITALS: TEMP 97.5; O2SAT 100
[2023-05-16 13:10] VITALS: BP 138/84
== END 2023-05-16 12:53 | disposition home or self-care (01) ==
LOC: ER 11:51
DX: R07.0 Pain in throat (principal); Z88.8 Allergy status to other drugs, medicaments and biological substances
CPT/HCPCS: 96375; 96374; 99285; J1200